=== PATIENT | male | born 1995 | race African-American/Black ===

== ENCOUNTER 2020-11-12 15:44 | Emergency (ER) | payer MEDICAID ==
[~2020-11-12] VITALS: Ht 175.3 cm; Wt 77.0 kg
[2020-11-12] MEDS ORDERED: TETANUS, DIPHTHERIA, PERTUSSIS VAC/PF 0.5ML (>7YR OLD) IM ONE (16:00)
[2020-11-12] MEDS ORDERED: FENTANYL CITRATE/PF 50MCG/ML 2ML VIAL IV ONE (16:00)
[2020-11-12] MEDS ORDERED: ONDANSETRON HCL 4MG/2ML INJ IV ONE (16:00)
[2020-11-12 16:12] LABS: BASOPHILS % 0.5 % (0.0-2.0); EOSINOPHILS % 0.6 % (0.0-5.0); HEMOGLOBIN. 14.8 g/dL (14.0-18.0); LYMPHOCYTES % 33.9 % (20.0-50.0); MEAN CORPUSCULAR HEMOGLOBIN 29.5 pg (28.0-32.0); MEAN CORPUSCULAR VOLUME 89.8 fL (80.0-94.0); MEAN PLATELET VOLUME 9.7 fl (7.4-10.4); MONOCYTES % 10.3 % (2.0-8.0); NEUTROPHILS % 54.7 % (40.0-76.0); PLATELET 199 x1000/uL (130-400); RED BLOOD CELL COUNT 5.01 mill/uL (4.7-6.1); RED CELL DISTRIBUTION WIDTH 13.4 % (11.6-14.6)
[2020-11-12 16:13] LABS: CHLORIDE 105 mEq/L (98-107)
[2020-11-12 16:18] LABS: ETHANOL BLOOD < 10 mg/dL
[2020-11-12] MEDS ORDERED: KCL 20MEQ/100ML PREMIX 100 ML IV ONE (17:30)
[2020-11-12] MEDS ORDERED: SODIUM CHLORIDE 0.9% 1,000 ML IV ONE (17:30)
[2020-11-12] MEDS ORDERED: IOHEXOL-350 100 ML BOTTLE ONE (18:10)
[2020-11-12 19:50] VITALS: BP 107/58
== END 2020-11-12 20:19 | disposition home or self-care (01) ==
LOC: ER 15:44
DX: S70.11XA Contusion of right thigh, initial encounter (principal); X95.9XXA Assault by unspecified firearm discharge, initial encounter; Y93.89 Activity, other specified; Y92.89 Other specified places as the place of occurrence of the external cause; Y99.8 Other external cause status; E87.6 Hypokalemia
CPT/HCPCS: 36415; 70450; 71045; 73552; 73706; 80053; 80320; 83605; 83690; 85025; 86850; 86900; 86901; 90471; 90715; 93005; 96365; 96375; 99285; J2405; J3010; J3480; J7030; Q9967; Z7610; G0480

== ENCOUNTER 2020-12-09 14:47 | Emergency (ER) | payer MEDICAID ==
[~2020-12-09] VITALS: Ht 182.9 cm; Wt 77.0 kg
[2020-12-09 15:15] VITALS: BP 129/82
[2020-12-09] MEDS ORDERED: NAPR-681 MT (15:48)
== END 2020-12-09 16:30 | disposition home or self-care (01) ==
LOC: ER 14:47
DX: M79.661 Pain in right lower leg (principal); Z87.828 Personal history of other (healed) physical injury and trauma
CPT/HCPCS: 99282